=== PATIENT | female | born 1985 | race Hispanic/Latino ===

== ENCOUNTER 2017-08-20 14:35 | Emergency (ER) | payer MEDICAID | END 2017-08-20 15:32 | disposition home or self-care (01) | LOC: EDH 14:35 | DX: Z71.1 Person with feared health complaint in whom no diagnosis is made (principal); Z88.8 Allergy status to other drugs, medicaments and biological substances; Z87.891 Personal history of nicotine dependence | CPT/HCPCS: 99281 ==

== ENCOUNTER 2017-12-23 11:05 | Emergency (ER) | payer MEDICAID | END 2017-12-23 11:59 | disposition home or self-care (01) | LOC: EDH 11:05 | DX: B37.3 Candidiasis of vulva and vagina (principal); Z88.6 Allergy status to analgesic agent; Z88.8 Allergy status to other drugs, medicaments and biological substances ==

== ENCOUNTER 2018-04-29 19:28 | Emergency (ER) | payer MEDICAID ==
[2018-04-29] MEDS ORDERED: ASPIRIN 325 MG TABLET ONE (19:56)
[2018-04-29 20:19] LABS: BASOPHILS % (AUTO) 0.2 % (0.0-5.0); EOSINOPHILS % (AUTO) 1.2 % (0.0-8.0); HEMATOCRIT 37.5 % (36-48); LYMPHOCYTES % (AUTO) 33.3 % (21.0-51.0); MEAN CORPUSCULAR HEMOGLOBIN 27.5 pg (27.0-33.0); MEAN CORPUSCULAR HGB CONC 32.9 g/dL (32.0-36.0); MEAN CORPUSCULAR VOLUME 83.6 fL (79-99); MONOCYTES % (AUTO) 6.3 % (3.0-13.0); PLATELET COUNT (AUTO) 303 K/uL (130-400); RED BLOOD CELL COUNT(AUTO) 4.49 MIL/uL (4.00-5.50); RED CELL DISTRIBUTION WIDTH 14.9 % (11.0-15.5); WHITE BLOOD COUNT (AUTO) 7.8 K/uL (4.8-10.8)
[2018-04-29 20:21] LABS: APPEARANCE,URINE Clear (CLEAR); BILIRUBIN,URINE Negative (NEGATIVE); COLOR,URINE Yellow (YELLOW); GLUCOSE, URINE (UA) Negative (NEGATIVE); KETONES,URINE Negative (NEGATIVE); LEUKOCYTE ESTERASE ,URINE Negative (NEGATIVE); NITRATE,URINE Negative (NEGATIVE); OCCULT BLOOD,URINE Trace (NEGATIVE); PROTEIN,URINE Negative (NEGATIVE); UROBILINOGEN,URINE 0.2 mg/dL (0.2-1.0)
[2018-04-29 20:26] LABS: CREATININE 0.7 mg/dL (0.5-1.5); POTASSIUM 4.1 mmol/L (3.5-5.1)
[2018-04-29 20:27] LABS: HCG,QUAL RESULT NEGATIVE (NEGATIVE)
[2018-04-29 20:28] LABS: INR 0.95 (0.85-1.15); PARTIAL THROMBOPLASTIN TIME 30.1 SEC (26.3-35.5)
[2018-04-29 20:32] LABS: BACTERIA,URINE Rare /HPF (None Seen); RBC,URINE 0-1 /HPF (0-1); SQUAMOUS EPITHELIAL CELL,UR 0-2 /HPF (0-2); WBC,URINE 0-1 /HPF (0-1)
[2018-04-29 20:36] LABS: ALBUMIN 3.8 g/dL (3.5-5.0); BILIRUBIN,TOTAL 0.2 mg/dL (0.2-1.0); TOTAL PROTEIN, SERUM 7.6 g/dL (6.0-8.3)
== END 2018-04-29 21:36 | disposition home or self-care (01) ==
LOC: EDH 19:28
DX: R00.2 Palpitations (principal); F41.9 Anxiety disorder, unspecified; R07.9 Chest pain, unspecified; M79.605 Pain in left leg; M25.512 Pain in left shoulder; Z88.8 Allergy status to other drugs, medicaments and biological substances; Z72.0 Tobacco use; Z98.890 Other specified postprocedural states
CPT/HCPCS: 36415; 71045; 80053; 81001; 81025; 82550; 83874; 84484; 85025; 85610; 85730; 93005; 94761

== ENCOUNTER 2018-07-10 19:28 | Emergency (ER) | payer MEDICAID ==
[2018-07-10 19:47] LABS: APPEARANCE,URINE Clear (CLEAR); BILIRUBIN,URINE Negative (NEGATIVE); COLOR,URINE Yellow (YELLOW); GLUCOSE, URINE (UA) Negative (NEGATIVE); KETONES,URINE Negative (NEGATIVE); LEUKOCYTE ESTERASE ,URINE Moderate (NEGATIVE); NITRATE,URINE Negative (NEGATIVE); OCCULT BLOOD,URINE Small (NEGATIVE); PH,URINE 8.5 (5.0-8.0); PROTEIN,URINE Negative (NEGATIVE); UROBILINOGEN,URINE 0.2 mg/dL (0.2-1.0)
[2018-07-10] MEDS ORDERED: SODIUM CHLORIDE 0.9% 1000ML 1,000 ML IV ONE (19:47)
[2018-07-10 19:50] LABS: HCG,QUAL RESULT NEGATIVE (NEGATIVE)
[2018-07-10 20:06] LABS: BACTERIA,URINE Few /HPF (None Seen)
[2018-07-10 20:07] LABS: SQUAMOUS EPITHELIAL CELL,UR Few /HPF (0-2)
[2018-07-10] MEDS ORDERED: ACETAMINOPHEN 325 MG TAB ONE ×2 (20:26→21:02)
[2018-07-10] MEDS ORDERED: CEFTRIAXONE SODIUM 1 GM ONE (20:32)
[2018-07-10 21:13] LABS: CREATININE 0.8 mg/dL (0.5-1.5); POTASSIUM 3.5 mmol/L (3.5-5.1)
[2018-07-10 21:18] LABS: ALBUMIN 3.2 g/dL (3.5-5.0); BILIRUBIN,TOTAL 0.3 mg/dL (0.2-1.0); TOTAL PROTEIN, SERUM 6.9 g/dL (6.0-8.3)
[2018-07-10 21:27] LABS: INR 0.95 (0.85-1.15); PARTIAL THROMBOPLASTIN TIME 29.8 SEC (26.3-35.5)
[2018-07-10 21:28] LABS: BASOPHILS % (AUTO) 0.2 % (0.0-5.0); EOSINOPHILS % (AUTO) 0.8 % (0.0-8.0); HEMATOCRIT 34.5 % (36-48); LYMPHOCYTES % (AUTO) 4.2 % (21.0-51.0); MEAN CORPUSCULAR HEMOGLOBIN 27.4 pg (27.0-33.0); MEAN CORPUSCULAR HGB CONC 32.2 g/dL (32.0-36.0); MONOCYTES % (AUTO) 2.1 % (3.0-13.0); NEUTROPHILS % (AUTO) 92.7 % (40.0-77.0); PLATELET COUNT (AUTO) 201 K/uL (130-400); RED BLOOD CELL COUNT(AUTO) 4.06 MIL/uL (4.00-5.50); RED CELL DISTRIBUTION WIDTH 16.3 % (11.0-15.5); WHITE BLOOD COUNT (AUTO) 9.3 K/uL (4.8-10.8)
== END 2018-07-10 22:53 | disposition home or self-care (01) ==
LOC: EDH 19:28
DX: N39.0 Urinary tract infection, site not specified (principal); R50.81 Fever presenting with conditions classified elsewhere; F41.9 Anxiety disorder, unspecified; Z88.8 Allergy status to other drugs, medicaments and biological substances; Z98.890 Other specified postprocedural states
CPT/HCPCS: 36415; 80053; 81001; 81025; 83605; 85025; 85610; 85730; 87040 ×2; 87077; 87088; 87186; 87804 ×2; 96361; 96374; 99283; J0696; J7030

== ENCOUNTER 2018-10-04 13:05 | Emergency (ER) | payer MEDICAID ==
[2018-10-04] MEDS ORDERED: METOCLOPRAMIDE 10 MG TABLET ONE (13:40)
== END 2018-10-04 15:12 | disposition home or self-care (01) ==
LOC: EDH 13:05
DX: R11.2 Nausea with vomiting, unspecified (principal); R19.7 Diarrhea, unspecified; B83.9 Helminthiasis, unspecified; F41.9 Anxiety disorder, unspecified; Z88.8 Allergy status to other drugs, medicaments and biological substances